=== PATIENT | male | born 1965 | race Caucasian/White ===

== ENCOUNTER → 2018-03-27 16:46 | Outpatient (CLI) | payer OTHER, SELFPAY ==
[2018-03-27 18:05] LABS: Amphetamine Urine VISTA NEGATIVE (<1000 ng/mL); Barbiturate Urine VISTA NEGATIVE (< 200 ng/mL); Benzodiazepine Urine VISTA NEGATIVE (< 200 ng/mL); Cocaine Urine VISTA NEGATIVE (< 300 ng/mL); Ecstacy Urine VISTA NEGATIVE (< 500 ng/mL); Methadone Urine VISTA NEGATIVE (< 300 ng/mL); PCP Urine VISTA NEGATIVE (< 25 ng/mL); THC Urine VISTA NEGATIVE (< 50 ng/mL); Vista UDS pH Range 5
== END ==
PROVIDERS: Family Provider Family Medicine; PCP Family Medicine; Visit Provider Anesthesiology Pain Medicine
DX: F11.20 Opioid dependence, uncomplicated (principal)
CPT/HCPCS: 80307

== ENCOUNTER → 2019-11-13 17:22 | Outpatient (CLI) | payer OTHER, SELFPAY ==
[2014-04-06 16:09] VITALS: BMI 29.5
[2019-11-13 18:24] LABS: Amphetamine Urine VISTA NEGATIVE (<1000 ng/mL); Barbiturate Urine VISTA NEGATIVE (< 200 ng/mL); Benzodiazepine Urine VISTA NEGATIVE (< 200 ng/mL); Cocaine Urine VISTA NEGATIVE (< 300 ng/mL); Ecstacy Urine VISTA NEGATIVE (< 500 ng/mL); Methadone Urine VISTA NEGATIVE (< 300 ng/mL); PCP Urine VISTA NEGATIVE (< 25 ng/mL); THC Urine VISTA NEGATIVE (< 50 ng/mL); Vista UDS pH Range 7
== END ==
PROVIDERS: PCP Family Medicine; Referring Provider Anesthesiology Pain Medicine; Visit Provider Anesthesiology Pain Medicine
DX: F11.20 Opioid dependence, uncomplicated (principal)
CPT/HCPCS: 36415; 80307

== ENCOUNTER → 2020-05-29 07:24 | Outpatient (CLI) | payer OTHER, SELFPAY ==
--- NOTE | 2020-05-29 09:30 | NEURO ---
NCS and/or EMG Patient Report Ordering Doctor: Jesse Monahan DATE OF SERVICE: 05/29/20 Indication: Approximately 4-month history of left lower extremity pain. No preceding trauma or other instigating event. There is associated numbness in the calcaneal distribution. No localized or radicular back pain. Findings: Nerve conduction studies were performed in the left lower extremity. The left peroneal motor study recording the extensor digitorum brevis showed a normal amplitude, normal distal latency and normal conduction velocity. No conduction block or focal slowing was present across the fibular neck. The left tibial motor study recording the abductor hallucis brevis showed a borderline amplitude, normal distal latency and normal conduction velocity. Left sural sensory response showed a normal amplitude and borderline conduction velocity. Left superficial peroneal sensory response showed a normal amplitude and conduction velocity. Left lateral plantar mixed response was unobtainable. Left medial plantar mixed response was unobtainable. Needle EMG of the left lower extremity and lumbar paraspinal muscles was performed. No denervation was present in any muscle. All motor unit morphology, activation and recruitment patterns were normal. The intrinsic foot muscles were not examined due to the common presence of incidental active denervation. Impression: There is no electrophysiologic evidence of lumbosacral radiculopathy or peripheral neuropathy in the left lower extremity. The borderline tibial motor amplitude is of unclear significance, however, given the absence of the plantar responses, this could represent a distal tibial neuropathy. If this is supported clinically, a neuromuscular ultrasound of the tarsal tunnel could considered. Jd Fallon D.O.
== END ==
PROVIDERS: PCP Family Medicine; Referring Provider Family Medicine; Visit Provider Podiatrist Foot & Ankle Surgery
DX: G90.09 Other idiopathic peripheral autonomic neuropathy (principal)
CPT/HCPCS: 95886; 95909

== ENCOUNTER → 2020-06-26 17:49 | Outpatient (CLI) | payer OTHER, SELFPAY ==
[2020-06-19 10:32] VITALS: BMI 29.5
--- NOTE | 2020-06-26 17:51 | MRI_ITS ---
STUDY: MRI CERVICAL SPINE WITHOUT CONTRAST REASON FOR EXAM: Male, 55 years old. Neck pain right scapular pain TECHNIQUE: Standardized fat and water weighted pulse sequences were obtained in the sagittal and axial planes. COMPARISON: Plain films June 19 2020, MR cervical spine January 13 2017 FINDINGS: Examination is mildly degraded due to patient''s body habitus and presence of metallic components producing local artifact. Diagnostic information is available. Craniocervical junction is intact and aligned. There is C5-C7 ACDF which cannot be evaluated due to intrinsic limitations of MR in assessing hardware. Refer to CT for full details. Cervical spine is aligned. Marrow and paraspinal soft tissues are normal. BMI is elevated. Thecal sac is patent at all levels. Spinal cord is normal in size, shape and signal. There is mild to moderate C4-C5 bilateral foraminal stenosis. However, foramina are poorly seen and gradient of stenosis is not reliable. Remainder of the levels have patent foramina. Appearance is similar to 2017. MRI/Spine Cervical (Routine) IMPRESSION: 1. Patent thecal sac, normal cord. 2. No neural compression. 3. Stable appearance since 2017. Electronically Signed: Snehal Warren, at 19:32 EDT Tel , Service support ,
== END ==
PROVIDERS: PCP Family Medicine; Referring Provider Orthopaedic Surgery; Visit Provider Orthopaedic Surgery
DX: M54.2 Cervicalgia (principal); G89.29 Other chronic pain
CPT/HCPCS: 72141

== ENCOUNTER 2020-07-23 16:10 | Inpatient (IN) | payer OTHER, SELFPAY ==
[2020-07-06 09:06] VITALS: BMI 29.5
[2020-07-15 08:07] VITALS: BMI 29.5
--- NOTE | 2020-07-15 09:45 | EKG12_ITS ---
Test Reason : PRE OP Blood Pressure : / mmHG Vent. Rate : 071 BPM Atrial Rate : 071 BPM P-R Int : 150 ms QRS Dur : 102 ms QT Int : 376 ms P-R-T Axes : 051 073 050 degrees QTc Int : 408 ms Normal sinus rhythm Normal ECG Confirmed by ROHIT MUNOZ, KETURAH ([id number]), editor producer JUSTIN FIGUEROA ([id number]) on 07/16/2020 8:14:39 AM Referred By: Denys Wade Confirmed By:KETURAH BEE MD
[2020-07-15 09:55] LABS: Absolute Lymphocyte Count 1.41 X10^3/uL (0.83-4.51); Absolute Neutrophil Count 2.7 X10^3/uL (2.0-7.7); Basophil# 0.05 X10^3/uL; Eosinophil# 0.13 X10^3/uL; Eosinophils% 2.7 % (0-5); Hematocrit 41.1 % (40-54); Hemoglobin 13.9 g/dL (13.0-16.5); Lymphocyte # 1.41 X10^3/ul (4.0); Lymphocyte % 29.4 % (19-41); Mean Corp Hgb Conc 33.8 g/dL (32-36); Mean Corpuscular Hgb 31.2 pg (27.0-32.0); Mean Corpuscular Volume 92.2 fL (80-94); Mean Platelet Vol. 10.8 fl (6.2-12.0); Monocyte# 0.45 X10^3/uL; Monocyte% 9.4 % (0-10); NRBC Flagged by Analyzer 0 % (0-5); Neutrophil # 2.74 X10^3/uL (2.7-7.7); Neutrophil % 57.3 % (47-70); Platelet Count 205 K/mm3 (150-450); RBC Distribution Width CV 12.9 % (11.6-14.6); RBC Distribution Width SD 43.7 fl (35.1-43.9); Red Blood Count 4.46 M/mm3 (4.6-6.2); White Blood Count 4.8 K/mm3 (4.4-11.0)
[2020-07-15 10:25] LABS: Anion Gap 4 (5-15); BUN 14 mg/dL (7-18); BUN/Creat Ratio 19.9 RATIO (10-20); Calcium,Total 9.2 mg/dL (8.5-10.1); Chloride 110 mmol/L (98-107); EST Glomerular Filtration Rate 124 mL/min (>60); Est Glom Filt Rate - Afr Amer 150 mL/min (>60); Glucose 115 mg/dL (74-106); Potassium 4.1 mmol/L (3.5-5.1); Sodium Level 140 mmol/L (136-145)
[2020-07-15 10:54] LABS: HIV - WCH Non-Reactive (Nonreactive)
[2020-07-16 05:07] LABS: HEPATITIS B SURFACE AG Negative (Negative); Hepatitis A AB, Total Negative (Negative); Hepatitis A IgM Antibody Negative (Negative); Hepatitis B Core AB IgM Negative (Negative); Hepatitis B Core Ab Total Negative (Negative); Hepatitis C Ab 0.1 s/co ratio (0.0-0.9)
[2020-07-16 10:31] LABS: Hep B Surface Antibodies Non Reactive (.)
[2020-07-16 13:00] LABS: Magnesium 2.1 mg/dL (1.6-2.6)
[2020-07-23] VITALS (14 sets, daily range): BP systolic 122–149; BP diastolic 69–89; PULSE 73–105; RESP 16–18; TEMP 36.4–36.9; O2SAT 94–99; BMI 35.4
--- NOTE | 2020-07-23 | MISC_PTH ---
PATIENT: SYMONE BLANCO LOC: MS3 U#:[id number] AGE/SX: 55/M ROOM: ND317 RE07/23/[address]: Dr. Denys Wade DO : 1965 BED: 1 DIS: 07/24/2020 SPEC #: [id number] RECD: 07/23/20 07:28 STATUS: BILLIE REJazmin #: [id number] ROBERTO: 07/23/20 00:[address]: Denys Wade DEPT: SURGICAL PATHOLOGY RECD BY: Saman Mata ENTERED: 07/24/20 07:58 SP TYPE: MISC NAOMIE DR: MD Dr. Francisco Elizondo DO Tissues: TISSUE SURGICALLY REMOVED Procedures: Surgery Specimen Level IV HEADER OPERATION: Anterior cervical fusion C4-5 PRE-OP DIAGNOSIS: Cervical disc herniation C4-5 TISSUE SUBMITTED: Cervical disc C4-5 MICROSCOPIC DIAGNOSIS Cervical disc, C4-5, discectomy: Degenerative and focal reparative change. AM:rebeka 07/28/20 MICROSCOPIC DESCRIPTION Slides are reviewed. GROSS DESCRIPTION Received in fixative is one container labeled with the patient's name and designated cervical disc C4-5. The specimen consists of multiple irregular fragments of firm indurated tissue that in aggregate measure 2.5 x 1.5 x 0.2 cm. The specimen is totally submitted in one cassette after short decalcification. / SJ:rebeka 07/24/20 TC:5 CPT: 14099, 91862
--- NOTE | 2020-07-23 08:02 | HP_ITS ---
Intake Intake Visit Reasons: cervical spine Accompanied by: Is patient in pain?: Yes Allergies duloxetine HCl [From Cymbalta] Allergy (Verified 07/09/20 15:42) PT UNSURE OF REACTION fentanyl [From Duragesic] Allergy (Verified 07/09/20 15:42) Shortness of breath Medications Omeprazole 20 mg PO DAILY 04/06/14 [History Confirmed 07/15/20] Tramadol HCl 50 mg PO 4X/DAY 04/06/14 [History Confirmed 07/15/20] cycloBENZAPRine HCl [Flexeril] 10 mg PO TID 04/06/14 [History Confirmed 07/15/20] ibuprofen 800 mg-famotidine 26.6 mg tablet 1 tab PO TID 06/19/20 [History Confirmed 07/15/20] metoprolol tartrate 50 mg tablet 50 mg PO BID 06/19/20 [History Confirmed 07/15/20] naproxen 250 mg tablet 250 mg PO BID PRN 06/19/20 [History Confirmed 07/15/20] venlafaxine 75 mg capsule,extended release 24 hr 75 mg PO DAILY 06/19/20 [History Confirmed 07/15/20] Gemfibrozil [Lopid] 1 tab PO DAILY 07/09/20 [History Confirmed 07/15/20] Multivit-Min/Folic/Vit K/Lycop [Men's 50 Plus Daily Formula Tb] 1 ea PO DAILY 07/09/20 [History Confirmed 07/15/20] PFSH Medical History (Updated 06/19/20 @ 10:44 by Jackie Mejia) H/o neck disk (Acute) HTN (hypertension) (Chronic) Surgical History (Updated 06/19/20 @ 10:44 by Jackie Mejia) H/O colonoscopy (Acute) Social History (Updated 07/15/20 @ 08:[address] Denys Wade DO) household members: spouse, children, other details: granddaughter and son-in-law Smoking Status: Never smoker alcohol intake: current alcohol intake frequency: other what type of physical activity do you participate in: none HPI cervical spine: Surgical H&P: Yes Details: Parts of this documentation were recorded by a scribe, this documentation accurately reflects the service provided and the decisions made by me, Dr. Denys Wade DO 07/15/20 0800. RENÉ BLANCO is a 55 year old M here today for cervical spine F/U to sign surgery consent for anterior cervical fusion at C4-5 above the old fusion site. Patient states that over the weekend he had radiating pain into his BL hands. Denies numbness, tingling or other associated symptoms.He also has pain over his neck constantly. René is here for his preoperative evaluation he is in the company of his . He had the temporary radiating pain into his hands this weekend why I do not really know however it went away almost immediately. Otherwise nothing is changed. He continues have neck pain and posterior cervical cephalgia. I discussed the surgery at length with him and his how it would be done etc. I answered all their questions. Examination is unchanged he still has a lot of pain with extension more than flexion of the cervical spine. And a positive Spurling's locally to either side. He has no long tract signs. He has good motor strength of all the major muscle groups of both upper extremities. I went over his MRI scan and his plain x-rays again today to refamiliarize myself with his condition. I will see him again at surgery in 1 week. ROS [facility] Reports system reviewed and no additional complaints, except as docu, Reports joint pain, Denies numbness, Reports stiffness, Denies tingling Neuro No numbness, No tingling Coding Level of Care Code Off vis,new,level 2 Time Spent (min) 20 No change in H&P
[2020-07-23 10:30] LABS: Bedside Glucose 109 mg/dL (70-110)
[2020-07-23] MEDS: Acetaminophen 500 MG Tablet 1000 MG PO (10:50)
[2020-07-23] MEDS: Lactated Ringers 1,000 ML 100 ML IV ×2 (10:57→17:41)
[2020-07-23] MEDS: Heparin 10,000 UNITS/10 ML Vial 10000 UNITS (12:43)
--- NOTE | 2020-07-23 13:24 | RAD_ITS ---
STUDY: X-RAY - CERVICAL SPINE REASON FOR EXAM: Male, 55 years old. anterior cervical fusion C4-C5, cross table images in OR TECHNIQUE: 3 lateral view(s) of the cervical spine were obtained. COMPARISON: Single lateral view of 07/06/2020 FINDINGS: The atlantoaxial articulation appears normal on these lateral views. Odontoid process appears intact. Normal cervical lordosis. There is anterior fusion with disc spacer at the C4-5 level. There is an anterior cervical fusion plate from C5 to C7. C6 and C7 are poorly visualized on the submitted images. The soft tissue structures are unremarkable. RAD/Spine 1 View Any Level IMPRESSION: Anterior fusion with disc spacer at the C4-5 level, new in the interval. There is again demonstrated an anterior fusion plate from C5 to C7 as noted previously. C6 and C7 are poorly visualized on the submitted study. Electronically Signed: Ortiz Davison MD at 17:48 EDT , Service support ,
[2020-07-23] MEDS: Thrombin 5,000 IU Kit (PSA) 5,000 IU Vial 5000 IU (13:57)
--- NOTE | 2020-07-23 16:20 | OP.PCM_ITS ---
Report of Operation Date of Procedure: 07/23/20 Description of Surgical Findings:: Preoperative diagnosis is degenerative disc disease C4-5 above old fusion. Postoperative diagnosis is the same. The procedure anterior cervical fusion C4-5 with internal fixation. Surgeon was Dr. Wade. fiscal assistant was Venkata Lamb. Anesthesia was performed general endotracheal anesthesia administered by Panda Villatoro last name Arin SOLUTION DESIGNER The estimated blood loss was 50 cc. Drains 1/4 inch [place] drain was left in place. Complications none. Patient was taken to the OR where he was placed in the supine position on the operating table he was then placed under general endotracheal anesthesia a Azul catheter was inserted and a bolster was placed under his shoulders Curlex was put around his wrists around the foot of the bed and to the other wrist. Preoperative x-ray was taken with a needle marker in place to assure that we would start the incision to correct level. This was marked with a needle fidelina at his laceration in the midline using the end of an 18-gauge needle. The neck was prepped and draped in standard fashion I then made the incision at the predetermined point coverage of the edge of the right sternocleidomastoid muscle. Subcutaneous tissues were incised the length of the skin incision. Subcu's were undermined and the platysma was split longitudinally in line with its fibers. Exploited the cervical planes I note that this was an extremely difficult exposure because of patient's very large size and large depth in the old surgery which left him with much scar. Eventually we were able to identify the top of the old titanium plate. Knowing that the 4 5 space was the one immediately above it. The retraction was difficult self-retaining retractors were put in place after elevating the platysma the coli muscles on either side. This in place I remove the anterior annulus with a 15 blade this was just about the top of the plate so we did have to take an x-ray to know that we were at that level. Used a bur to increase the size of the anterior space. I then was able to elevated with an elevator and then I started removing disc from the disc space with pituitary rongeurs and curettes. All the cartilage was removed off both endplates. Took her measurements for the cage we decided to use a 6 mm cage we used a broach to broach the the disc space several times but not both endplates. Millimeter cage and filled with processed allograft bone. Early in the procedure we open the right crest with just a tiny incision using a Jamshidi needle between the tables of the pelvis and 60 cc of bone marrow aspirate were obtained these were then given to the advanced manufacturing technician in the room who spun it down a nd it from the plasma and blood cells and gave it to me in a concentrated fashion of 8-10 times. The cages allograft bone was then soaked in the patient's own stem cells. Esthesia pulling on the had not been tamped into place and countersunk just slightly worse of 2 screws were freehanded and this was the internal fixation portion. 1 went up into see for and the other 1 went down into C5. Her about operative x-ray was taken demonstrate excellent position of the cage and the 2 screws. The amniotic membrane was then placed over this and the top of the old plate that had been exposed to prevent adhesions to the esophagus. 1/4 inch Riya drain was inserted we then closed the platysma and running fashion with 5-0 Vicryl followed by closure of subcutaneous tissues with 5-0 Vicryl in interrupted fashion and the skin was approximated using a running nylon stitch. The pin was placed through the pain to prevent a suction into the wound. This is the end of this operative summary
[2020-07-23] MEDS: Morphine 2 MG/ML Syringe IV ×3 (18:36→22:24)
[2020-07-23] MEDS: 0.9% NaCl Peripheral Flush Adult/Peds IV ×3 (18:36→22:24)
--- NOTE | 2020-07-23 18:56 | PCM.CONS.GEN ---
Problem List (1) Chronic neck pain Status: Chronic (2) Benign essential hypertension Status: Chronic (3) Hyperlipidemia Status: Chronic Qualifiers: Hyperlipidemia type: unspecified Qualified Code(s): E78.5 - Hyperlipidemia, unspecified (4) Gastroesophageal reflux disease Status: Chronic Qualifiers: Esophagitis presence: esophagitis presence not specified Qualified Code(s): K21.9 - Gastro-esophageal reflux disease without esophagitis (5) LISA (obstructive sleep apnea) Status: Chronic (6) Obesity Status: Chronic Qualifiers: Obesity type: due to excess calories Obesity classification: adult class 2 (BMI 35 - 39.9) Serious obesity comorbidity presence: unspecified whether serious comorbidity present Body mass index: BMI 35.0-35.9 Qualified Code(s): E66.09 - Other obesity due to excess calories; Z68.35 - Body mass index [BMI] 35.0-35.9, adult Reason for Consult Date of Consultation: 07/23/20 Reason for Consultation: Medical consultation History of Present Illness: 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 Medical consultation requested for medical management. Work-up included post-operative VS T 98.1, heart rate 99, BP 149/78, respiratory rate 16, 98% on a simple mask, most recent labs noted 07/15/2020 CBC with WC 4.8, hemoglobin 13.9, platelet 205 without market shift, BMP with chloride 110, glucose 115 otherwise unremarkable, magnesium 2.1, negative COVID testing, plain film spine obtained in the OR with anterior fusion with the spacer at C4-5 level, new in the interval, a re-demonstrated anterior fusion plate from C5-C7 as well as C6 and C7 poorly visualized. Upon evaluation he notes neck discomfort /10, recently administered morphine. He denies any upper extremity paresthesias or pain currently. Past Medical History Past Medical History (Chronic Problems): Chronic Problems (Last Updated 06/19/20 @ 10:44 by Jackie Mejia) LISA (obstructive sleep apnea) (Chronic) Chronic neck pain (Chronic) Obesity (Chronic) Hyperlipidemia (Chronic) Gastroesophageal reflux disease (Chronic) Depression (Chronic) Benign essential hypertension (Chronic) Medical History: Medical History (Last Updated 06/19/20 @ 10:44 by Jackie Mejia) H/o neck disk C7 C6 C5, 07/06/2004 HTN (hypertension) I10 Allergies duloxetine HCl [From Cymbalta] Allergy (Verified 07/23/20 10:25) PT UNSURE OF REACTION shakes/ excessive sweating fentanyl [From Duragesic] Allergy (Verified 07/23/20 10:25) Shortness of breath Home Medications: Ambulatory Orders Medication Instructions Recorded Omeprazole 20 mg PO DAILY 04/06/14 Tramadol HCl 50 mg PO 4X/DAY 04/06/14 cycloBENZAPRine HCl [Flexeril] 10 mg PO TID 04/06/14 ibuprofen 800 mg-famotidine 26.6 1 tab PO TID 06/19/20 mg tablet metoprolol tartrate 50 mg tablet 50 mg PO BID 06/19/20 naproxen 250 mg tablet 250 mg PO BID PRN 06/19/20 venlafaxine 75 mg capsule,extended 75 mg PO DAILY 06/19/20 release 24 hr Gemfibrozil [Lopid] 1 tab PO DAILY 07/09/20 Multivit-Min/Folic/Vit K/Lycop 1 ea PO DAILY 07/09/20 [Men's 50 Plus Daily Formula Tb] Surgical History: Surgical History (Last Updated 06/19/20 @ 10:44 by Jackie Mejia) H/O colonoscopy Z98.890 Surgical History: - - Prior cervical C5-7 fusion. Psychiatric History: No pertinent psych hx Lives: Spouse/ Significant Other Smoking Status: Never smoker Tobacco Use: Secondhand - Patient's mother and father had heavy tobacco use history. Alcohol: None Drugs: None - *Family History Maternal Family History: Family History (Last Updated 06/19/20 @ 10:47 by Jackie Mejia) Mother COPD (chronic obstructive pulmonary disease) Hypertension Arthritis Father Cancer Heart disease History Items: Hypertension, Pulmonary Disease - Mother with a history of chronic COPD with significant tobacco use history. Paternal Family History: Family History (Last Updated 06/19/20 @ 10:47 by Jackie Mejia) Mother COPD (chronic obstructive pulmonary disease) Hypertension Arthritis Father Cancer Heart disease History Items: Cancer - Father with a history of lung cancer with concurrent tobacco use history., Heart Disease Review of Systems Constitutional: Reports: Malaise, Weakness, Fatigue. Denies: Anorexia, Chills, Fever, Weight Change HEENT: Reports: Head Aches. Denies: Sinus Congestion, Sinus Drainage Cardiovascular: Denies: Chest Pain, Palpitations Respiratory: Denies: Cough, Shortness of breath at rest, Sputum production Gastrointestinal: Denies: Abdominal Pain, Nausea, Vomiting Genitourinary: Denies: Dysuria Musculoskeletal: Reports: Arm Pain, Neck Pain. Denies: Joint Pain, Joint Tenderness Skin: Denies: Rash, Wounds Neurological: Denies: Numbness, Tingling, Focal weakness Psychiatric: Denies: Anxiety, Depression, Homicidal Ideations, Suicidal Ideations Hematologic/ Lymphatic: Denies: Easy Bruising, Easy Bleeding Subjective: Patient laying in the medical surgical bed, recent postop, soft neck collar in place, anterior dressing with no drainage noted, notes pain 6 out of 10 with recent morphine administration. Objective: Physical Examination: General: awake, alert, oriented x 3 and cooperative, laying in the medical surgical bed, no acute distress, notes pain 6 out of 10. Skin: normal color, turgor, no icterus, cyanosis except noted anterior neck dressing in place with no drainage, soft cervical collar in place. HEENT: AT/NC, EOMI, PERRLA, dry MM, deferred assessment of carotid bruits or JVD as soft neck collar in place, dressing across neck with no drainage status post recent anterior cervical fusion. Lungs: CTA bilaterally, moderate effort, mild decrease BL bases, no rales, ronchi or wheezing. Heart: Regular rate and rhythm; no gallop, rub audible. Abdomen: soft, obese, NTTP, ND, normal BS, no HSM. Extremities: no cyanosis, clubbing, mild bilateral hand edema. Neurological: patient awake, alert, oriented x 3; cognitive function intact; pupils equally reactive to light and accomodation; cranial nerves II-XII grossly normal, moving all 4 extremities although limited given recent neck surgery, strength accordingly diminished secondary to parameters with recent neck surgery but preserved otherwise with no focal deficits, sensation intact, no current radiculopathy in upper extremities noted per patient. Psychiatric: affect appears fatigued otherwise normal, no acute evidence of depressive or anxiety feelings. - Physical Exam Vitals/I&O's: Vital Signs Temp Pulse Resp BP Pulse Ox 98.1 F 102 H 16 147/78 H 97 07/23/20 18:19 07/23/20 18:19 07/23/20 18:19 07/23/20 18:19 07/23/20 18:19 Oxygen Flow Rate (L/min) 6 Oxygen Delivery Method Simple Mask Weight: 283 lb 11.759 oz Body Mass Index (BMI) 35.4 Intake and Output for Last 24 Hours 07/21/20 07/22/20 07/23/20 23:59 23:59 23:59 Intake Total 1222.5 / 1222.5 Output Total 450 / 450 Balance 772.5 / 772.5 Laboratory Results 07/23/20 10:24: POC Glucose 109 Current Medications Enteral Nutritional Formula (Ensure Surgery) 237 ml PO TIDCM RAUDEL Last Admin: 07/23/20 18:00 Dose: Not Given Documented by: Gemfibrozil (Lopid) 600 mg PO DAILYCM [facility] Lactated Ringer's () 1,000 mls @ 100 mls/hr IV .Q10H RAUDEL Last Admin: 07/23/20 17:41 Dose: 100 mls/hr Documented by: Cefazolin Sodium () 1 gm in 50 mls @ 100 mls/hr IV Q8H [facility] Insulin Human Lispro (Humalog Kwikpen (Bkc)) 1 - 6 unit SC Q4H PRN PRN; Protocol PRN Reason: BG>/= 180, SEE PROTOCOL Metoprolol Tartrate (Lopressor (Beta Neal)) 50 mg PO BID [facility] Morphine Sulfate () 2 - 4 mg IV Q2H PRN PRN PRN Reason: Pain Score 6-10 Morphine Sulfate () 2 - 4 mg IV Q2H PRN PRN PRN Reason: Pain Score 6-10 Last Admin: 07/23/20 18:36 Dose: 2 mg Documented by: Ondansetron HCl (Zofran) 4 mg IV Q8H PRN PRN PRN Reason: NAUSEA Pantoprazole Sodium (Protonix) 20 mg PO DAILY [facility] Sodium Chloride () 5 - 15 ml IV UD PRN PRN Reason: SALINE FLUSH Last Admin: 07/23/20 18:36 Dose: 10 ml Documented by: Venlafaxine HCl (Effexor Xr) 75 mg PO DAILY [facility] Assessment/Plan 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 1. Severe posterior cervical cephalgia with associated radiculopathy: Failed conservative therapies and treatments, admitted per Dr. Wade for planned 07/23/20 anterior cervical fusion at C4-5, post-operative pain management, bowel regimen, DVT Prophylaxis, PT/OT/CM per Orthopedic surgery discretion. Continued on patient home venlafaxine which he notes is only for pain and not anxiety and depression although depression reported in history previously. Given patient current complaints with recent morphine administration will add also oral oxycodone. If necessary may also consider gabapentin in addition. 2. Hypertension: Continue home regimen including metoprolol. 3. Hyperlipidemia: Continued on patient Lopid. 4. Obesity: Weight loss and lifestyle changes encouraged. 5. GERD: Continue patient home Protonix regimen. 6. LISA: CPAP q HS. 7. DVT Prophylaxis: SCDS, chemoprophylaxis per surgery discretion given recent OR. Office Visits / Consults: [id number] IP Consult L3
[2020-07-23] MEDS: Cefazolin 1 GM/50 ML BAG IV (22:13)
[2020-07-23] MEDS: Metoprolol Tartrate 50 MG Tablet PO (22:19)
--- NOTE | 2020-07-23 23:28 | CPS ---
Pt. brought in home CPAP unit for his sleep apnea. I went into the pt.'s room, and I was getting ready to set-up his home unit. He claimed to me that he doesn't want to wear his CPAP tonight, due to cervical spine infusion (C4-C5); pt. wearing neck brace at this time.
[2020-07-24] VITALS (7 sets, daily range): BP systolic 117–142; BP diastolic 75–79; PULSE 75–98; RESP 16–18; TEMP 36.2–36.6; O2SAT 95–97
[2020-07-24] MEDS: Lactated Ringers 1,000 ML 100 ML IV (01:57)
[2020-07-24] MEDS: Morphine 2 MG/ML Syringe IV (02:01)
[2020-07-24] MEDS: 0.9% NaCl Peripheral Flush Adult/Peds IV (02:03)
[2020-07-24] MEDS: Cefazolin 1 GM/50 ML BAG IV (06:01)
[2020-07-24] MEDS: Pantoprazole Sodium 20 MG Tablet PO (09:04)
[2020-07-24] MEDS: Metoprolol Tartrate 50 MG Tablet PO (09:04)
[2020-07-24] MEDS: Venlafaxine XR 75 MG Capsule PO (09:04)
[2020-07-24] MEDS: Polyethylene Glycol 3350 17 GM PACKET PO (09:04)
[2020-07-24] MEDS: Gemfibrozil 600 MG Tablet PO (09:05)
[2020-07-24] MEDS: BENZOCAINE/MENTHOL 1 LOZENGE 2 LOZENGE MUCOUS MEM (09:09)
[2020-07-24] MEDS: Ensure Surgery 237 ML LIQUID PO (09:16)
[2020-07-24 10:23] LABS: Absolute Lymphocyte Count 1.25 X10^3/uL (0.83-4.51); Absolute Neutrophil Count 10.5 X10^3/uL (2.0-7.7); Basophil# 0.01 X10^3/uL; Basophil% 0.1 % (0-1); Hematocrit 42.7 % (40-54); Hemoglobin 14.2 g/dL (13.0-16.5); Lymphocyte # 1.25 X10^3/ul (4.0); Lymphocyte % 9.8 % (19-41); Mean Corp Hgb Conc 33.3 g/dL (32-36); Mean Corpuscular Hgb 30.5 pg (27.0-32.0); Mean Corpuscular Volume 91.8 fL (80-94); Mean Platelet Vol. 10.3 fl (6.2-12.0); Monocyte# 0.91 X10^3/uL; Monocyte% 7.2 % (0-10); NRBC Flagged by Analyzer 0 % (0-5); Neutrophil # 10.49 X10^3/uL (2.7-7.7); Neutrophil % 82.5 % (47-70); Platelet Count 248 K/mm3 (150-450); RBC Distribution Width CV 12.6 % (11.6-14.6); RBC Distribution Width SD 42.7 fl (35.1-43.9); Red Blood Count 4.65 M/mm3 (4.6-6.2); White Blood Count 12.7 K/mm3 (4.4-11.0)
[2020-07-24 10:39] LABS: Anion Gap 6 (5-15); BUN 13 mg/dL (7-18); BUN/Creat Ratio 18.8 RATIO (10-20); Calcium,Total 8.9 mg/dL (8.5-10.1); Chloride 104 mmol/L (98-107); Creatinine, Serum 0.69 mg/dL (0.70-1.30); EST Glomerular Filtration Rate 126 mL/min (>60); Est Glom Filt Rate - Afr Amer 153 mL/min (>60); Estimated Creatinine Clearance 144.58 ml/min; Glucose 109 mg/dL (74-106); Potassium 4.2 mmol/L (3.5-5.1); Sodium Level 136 mmol/L (136-145)
--- NOTE | 2020-07-24 10:54 | DCINST_ITS ---
- Discharge Diagnoses Current Active Problems: Current Active and Chronic Problems (Last Updated 06/19/20 @ 10:44 by Jackie Mejia) LISA (obstructive sleep apnea) (Chronic) You will use the following diet at home:: Regular Discharge Activity: May Not Drive Return to work on:: 08/14/20 Weight Bearing Status: Full weight bearing Lifting Restrictions: 20 pounds Call your doctor if your incision/area has: Sudden Increased Bleeding Call your doctor if you observe: Fever of 101 or Higher Change Dressing in (Days):: 4 Remove Dressing in (days):: 4 Allergies/Adverse Reactions: Allergies duloxetine HCl [From Cymbalta] Allergy (Verified 07/23/20 10:25) PT UNSURE OF REACTION shakes/ excessive sweating fentanyl [From Duragesic] Allergy (Verified 07/23/20 10:25) Shortness of breath Medications to take at Discharge Omeprazole 20 mg PO DAILY 04/06/14 Tramadol HCl 50 mg PO 4X/DAY 04/06/14 cycloBENZAPRine HCl [Flexeril] 10 mg PO TID 04/06/14 metoprolol tartrate 50 mg tablet 50 mg PO BID 06/19/20 venlafaxine 75 mg capsule,extended release 24 hr 75 mg PO DAILY 06/19/20 Gemfibrozil [Lopid] 1 tab PO DAILY 07/09/20 Multivit-Min/Folic/Vit K/Lycop [Men's 50 Plus Daily Formula Tb] 1 ea PO DAILY 07/09/20 Primary Care Physician: Zeeshan George MD [Primary Care Provider] - Test Results: Test results from this visit will be discussed in further detail at your follow- up appointment, if applicable. Please Follow Up With: Denys Wade DO When: 1 week
--- NOTE | 2020-07-24 16:44 | PCM.PN.HOSP ---
Reason for Visit: Follow-up for cervical fusion C4-5. Chronic cervical pain. Objective: Heart rate and blood pressure are controlled. Patient denies tingling numbness, paresthesia or weakness of upper extremities. Physical exam General: Alert, Oriented x3, Cooperative HEENT: Atraumatic, PERRLA, EOMI, Normocephalic Oral: No Gingival or Mucosal Lesions/ Ulcerations Neck: Patient on cervical collar. Anterior neck dressing dry. No hematoma or soakage. Supple, No JVD, Negative Carotid Bruits Lungs: Air entry diminished in bilateral lung bases. No crepitation/rhonchi Cardiovascular: Regular rate, Regular Rhythm, Normal S1, Normal S2, No murmurs Abdomen: Bowel Sounds Present, Soft, Non Tender, Non-Distended : No renal angle tenderness. No suprapubic tenderness. Extremities: No edema, Capillary Refill Less than 3 Seconds Skin: No rashes, No breakdown Musculoskeletal: No Tenderness to Palpation of Joints or Extremities Neurological: Cranial nerves II-XII grossly intact, Deep Tendon Reflexes 2+/4 and Symmetrical, Neuro grossly intact. Strength 5 x 5 at major joints of upper extremities. Sensation equal and symmetrical on both upper extremities. Psych/Mental Status: Normal Affect, Appropriate. Vitals/I&O's: Vital Signs Temp Pulse Resp BP Pulse Ox 97.2 F L 82 18 142/79 H 95 07/24/20 09:02 07/24/20 09:04 07/24/20 09:02 07/24/20 09:02 07/24/20 09:02 Oxygen Flow Rate (L/min) 2 Oxygen Delivery Method Room Air Weight: 283 lb 11.759 oz Body Mass Index (BMI) 35.4 Intake and Output for Last 24 Hours 07/22/20 07/23/20 07/24/20 23:59 23:59 23:59 Intake Total 1272.5 / 1322.5 1743.34 / 1743.34 Output Total 450 / 1100 1950 / 1950 Balance 822.5 / 222.5 -206.66 / -206.66 Laboratory Results 07/24/20 10:00: WBC 12.7 H, RBC 4.65, Hgb 14.2, Hct 42.7, MCV 91.8, MCH 30.5, MCHC 33.3, RDW Std Deviation 42.7, RDW Coeff of Marita 12.6, Plt Count 248, MPV 10.3, Immature Gran % (Auto) 0.400, Neut % (Auto) 82.5 H, Lymph % (Auto) 9.8 L, [place] % (Auto) 7.2, Eos % (Auto) 0.0, Baso % (Auto) 0.1, Absolute Neuts (auto) 10.5 H, Absolute Lymphs (auto) 1.25, Nucleated RBC % 0 07/24/20 10:00: Sodium 136, Potassium 4.2, Chloride 104, Carbon Dioxide 26.0, Anion Gap 6, BUN 13, Creatinine 0.69 L, Estim Creat Clear Calc 144.58, Est GFR (MDRD) Af Amer 153, Est GFR (MDRD) Non-Af 126, BUN/Creatinine Ratio 18.8, Glucose 109 H, Calcium 8.9 Medical Necessity - Tobacco Use Smoking Status: Never smoker Tobacco Use: Secondhand - Patient's mother and father had heavy tobacco use history. Assessment/Plan The patient is a 55 y/o M with history of chronic cervical radiculopathy was admitted electively for anterior cervical C4-5 fusion. He had bilateral upper extremity and neck pain for a long time. 1. Cervical degenerative disc disease at C4-5 with associated radiculopathy: Patient had anterior cervical fusion at C4-5 through anterior approach. Pain is controlled. Patient does not have new numbness tingling paresthesia or weakness of upper extremity. Patient is being discharged today. 2. Hypertension: Continue home regimen including metoprolol. 3. Hyperlipidemia: Continued on patient gemfibrozil 4. Obesity: Weight loss and lifestyle changes encouraged. 5. GERD: Continue patient home Protonix regimen. 6. LISA: CPAP q HS. 7. DVT Prophylaxis: SCDS Patient is being discharged home. Follow-up with Dr. Wade Inpatient E&M: [id number] Disch Hosp
== END 2020-07-24 11:59 | disposition home or self-care (01) | DRG 473 ==
LOC: SDC 16:43 → MS3 16:43
PROVIDERS: Anesthesiology; Internal Medicine; Admitting Provider Orthopaedic Surgery; PCP Family Medicine; Referring Provider Orthopaedic Surgery; Visit Provider Orthopaedic Surgery
PROC: 0RG10K0 Fusion of Cervical Vertebral Joint with Nonautologous Tissue Substitute, Anterior Approach, Anterior Column, Open Approach (ICD-10-PCS; CPT 22551; principal; 2020-07-23 11:00)
DX: M50.121 Cervical disc disorder at C4-C5 level with radiculopathy (principal); G89.29 Other chronic pain; Z11.59 Encounter for screening for other viral diseases; I10 Essential (primary) hypertension; E78.5 Hyperlipidemia, unspecified; G47.33 Obstructive sleep apnea (adult) (pediatric); K21.9 Gastro-esophageal reflux disease without esophagitis; F32.9 Major depressive disorder, single episode, unspecified; E66.9 Obesity, unspecified; Z68.35 Body mass index [BMI] 35.0-35.9, adult; Z79.899 Other long term (current) drug therapy; Z98.1 Arthrodesis status
CPT/HCPCS: 36415; 72020; 80048; 82962; 83735; 85025; 86703; 86704; 86705; 86706; 86708; 86709; 86803; 87081; 87340; 87635; 88305; 93005; 99251; C9803; J7120; 90686; A4216; G0463; J2405; U0003

== ENCOUNTER → 2021-01-19 16:40 | Outpatient (CLI) | payer OTHER, SELFPAY ==
[2021-01-19 17:48] LABS: Amphetamine Urine VISTA NEGATIVE (<1000 ng/mL); Barbiturate Urine VISTA NEGATIVE (< 200 ng/mL); Benzodiazepine Urine VISTA NEGATIVE (< 200 ng/mL); Cocaine Urine VISTA NEGATIVE (< 300 ng/mL); Ecstacy Urine VISTA NEGATIVE (< 500 ng/mL); Methadone Urine VISTA NEGATIVE (< 300 ng/mL); PCP Urine VISTA NEGATIVE (< 25 ng/mL); THC Urine VISTA NEGATIVE (< 50 ng/mL); Vista UDS pH Range 5
== END ==
PROVIDERS: PCP Family Medicine; Referring Provider Anesthesiology Pain Medicine; Visit Provider Anesthesiology Pain Medicine
DX: F11.20 Opioid dependence, uncomplicated (principal)
CPT/HCPCS: 80307

== ENCOUNTER 2021-05-04 16:14 | Emergency (ER) | payer OTHER, SELFPAY ==
[2021-05-04 16:15] VITALS: BP 156/87; PULSE 79; RESP 16; TEMP 36.8; O2SAT 98; BMI 27.8
--- NOTE | 2021-05-04 16:41 | EKG12_ITS ---
Test Reason : GEN ILLNESS Blood Pressure : / mmHG Vent. Rate : 075 BPM Atrial Rate : 075 BPM P-R Int : 152 ms QRS Dur : 098 ms QT Int : 372 ms P-R-T Axes : 068 088 041 degrees QTc Int : 415 ms Normal sinus rhythm Normal ECG Confirmed by KARINE MUNOZ, FRANCISCO ([id number]), editor index MEL JERRY ([id number]) on 05/07/2021 10:00:52 AM Referred By: FLORES Confirmed By:FRANCISCO MILTON MD
--- NOTE | 2021-05-04 16:42 | EDS_ITS ---
HPI History of Present Illness Chief Complaint: General Illness Informant: patient Narrative Narrative: 56-year-old male presenting with myalgias. Patient states he was fishing on Monday and out in the heat for several hours. He feels that he may not have had enough water to drink. He was seen at urgent care and they advised that he may be dehydrated and he should come to the ED for evaluation. He complains of myalgias, fatigue. He denies dizziness or syncope. Denies chest pain or shortness of breath. Denies numbness or weakness. Recent Illness/Hospitalization: No PFSH PFSH Medical History (Updated 05/04/21 @ 17:[address] Flavia Corbett MD) GERD (gastroesophageal reflux disease) H/o neck disk HTN (hypertension) LISA (obstructive sleep apnea) Home Medications cyclobenzaprine 10 mg PO TID 04/06/14 [History Last Taken Unknown] omeprazole 20 mg PO DAILY 04/06/14 [History Last Taken 07/23/20 07:30 20 MG] tramadol 50 mg PO 4X/DAY 04/06/14 [History Last Taken Unknown] metoprolol tartrate 50 mg tablet 50 mg PO BID 06/19/20 [History Last Taken 07/23/20 07:30 50 MG] venlafaxine 75 mg capsule,extended release 24 hr 75 mg PO DAILY 06/19/20 [History Last Taken Unknown] gemfibrozil 1 tab PO DAILY 07/09/20 [History Last Taken Unknown] ufcwvmwc-cpe-akwun-vit K-lycop 1 ea PO DAILY 07/09/20 [History Last Taken Unknown] zolpidem 10 mg tablet 10 mg PO QHS PRN #30 tab 09/01/20 [Rx Last Taken Unknown] Allergy/AdvReac Type Severity Reaction Status Date / Time duloxetine HCl Allergy PT UNSURE Verified 05/04/21 16:15 [From Cymbalta] OF REACTION fentanyl [From Duragesic] Allergy Shortness Verified 05/04/21 16:15 of breath Family History (Updated 06/19/20 @ 10:47 by Jackie Mejia) Mother COPD (chronic obstructive pulmonary disease) Hypertension Arthritis Father Cancer Heart disease Surgical History H/O colonoscopy Social History (Updated 01/25/21 @ 08:[address] Denys Wade, DO) household members: spouse, children and other details: granddaughter and son-in-law Smoking Status: Never smoker alcohol intake: current alcohol intake frequency: other what type of physical activity do you participate in: none ROS ROS ED Constitutional Constitutional ED: Denies fever(s) Eyes Eyes: Denies change in vision ENT ENT ED: Denies rhinorrhea or sore throat Cardiovascular Cardiovascular: Denies chest pain or palpitations Respiratory/Chest Respiratory/Chest: Denies cough or dyspnea Gastrointestinal Gastrointestinal: Reports nausea; Denies abdominal pain, diarrhea or vomiting Genitourinary Genitourinary ED: Denies dysuria Musculoskeletal Musculoskeletal: Reports myalgias Integumentary Denies rash Neurologic Neurologic: Reports headache(s) Psychiatric Psychiatric: Denies suicidal thoughts EXAM Physical Exam Const Vital Signs: 05/04/21 16:15 05/04/21 17:09 Temperature 98.3 F Temperature Source Temporal Pulse Rate 79 Respiratory Rate 16 Respiratory Effort Normal Non-Labored Respiratory Pattern Normal Blood Pressure 156/87 H Blood Pressure Mean 110 Pulse Ox 98 Oxygen Delivery Method Room Air Positive well nourished and well developed General Appearance ED: well developed HEENT Reports normocephalic and head/scalp atraumatic Eyes PERRL and EOMs intact bilaterally Neck supple Neck Narrative: No meningismus General: Negative for tenderness Chest Wall inspection of chest normal Resp normal respiratory effort and clear to auscultation bilaterally Cardio regular rate and regular rhythm GI non-tender and non-distended Palpation: soft; Negative for guarding or rebound tenderness present no CVA tenderness Extremity normal to inspection Neuro oriented x3 Sensorium / Orientation: alert Psych mental status grossly normal Skin no rashes or lesions noted MDM MDM MDM Narrative Medical decision making narrative: Patient was given IV fluids. Chest x-ray read by myself and radiology shows no acute process. Covid is negative. Patient is resting comfortably on reevaluation. Advised to drink plenty of fluids. Advised to follow-up with primary care physician. Advised return to ED for worsening complaints. Lab Data Attestation: I reviewed the patient's lab results. Labs: Laboratory Results - last 24 hr 05/04/21 05/04/21 16:55 16:55 WBC 7.7 RBC 5.38 Hgb 16.6 H Hct 50.1 MCV 93.1 MCH 30.9 MCHC 33.1 RDW Std Deviation 45.1 H RDW Coeff of Marita 13.2 Plt Count 244 MPV 10.1 Immature Gran % (Auto) 0.300 Neut % (Auto) 66.2 Lymph % (Auto) 23.4 [place] % (Auto) 8.3 Eos % (Auto) 1.0 Baso % (Auto) 0.8 Absolute Neuts (auto) 5.1 Absolute Lymphs (auto) 1.81 Nucleated RBC % 0 Sodium 138 Potassium 4.2 Chloride 105 Carbon Dioxide 29.0 Anion Gap 4 L BUN 16 Creatinine 0.87 Estim Creat Clear Calc 110.23 Est GFR (MDRD) Af Amer 116 Est GFR (MDRD) Non-Af 96 BUN/Creatinine Ratio 18.3 Glucose 83 Calcium 9.2 Troponin I High Sens 3.1 Radiography Chest X-Ray - ED: 1 View, Read by ED Physician and Read by Radiologist Diagnostic Testing: Radiology Impression Chest X-Ray 05/04/21 16:58 IMPRESSION: No radiographic evidence of acute cardiopulmonary disease. at 1737 Reported and signed by: Matthew Sherman MD Electronically Signed: Matthew Sherman MD at 17:36 EDT Tel , Service support , EKG Initial EKG: Attestation: I personally reviewed and interpreted this EKG as follows: Interpretation: Sinus Rhythm and No Acute Injury Pattern Discharge Plan Triage Chief Complaint: General Illness ED Provider: Flavia Corbett Dx/Rx/DC Orders Clinical Impression: Dehydration, mild Instructions: ED Dehydration (Adult) Prescriptions: No Action venlafaxine 75 mg capsule,extended release 24hr 75 mg PO DAILY RF: 0 metoprolol tartrate 50 mg tablet 50 mg PO BID RF: 0 cyclobenzaprine 10 MG tablet 10 mg PO TID RF: 0 tramadol 50 MG tablet 50 mg PO 4X/DAY RF: 0 omeprazole 20 MG capsule,delayed release(DR/EC) 20 mg PO DAILY RF: 0 gemfibrozil 600 MG tablet 1 tab PO DAILY RF: 0 kqbcfnkg-nbd-ntrmz-vit K-lycop 1 EACH tablet 1 ea PO DAILY RF: 0 zolpidem 10 mg tablet 10 mg PO QHS PRN (Reason: insomnia) Qty: 30 RF: 0 Primary Care Provider: Zeeshan George Referrals: Zeeshan George MD [Primary Care Provider] - Disposition Disposition: Home, Self Care
[2021-05-04] MEDS: 0.9% Normal Saline 1,000 ML 1000 ML IV (16:57)
--- NOTE | 2021-05-04 16:58 | RAD_ITS ---
HISTORY: sob EXAMINATION/TECHNIQUE: XR Chest 1 View: Portable AP upright chest x-ray COMPARISON: 12/05/11 FINDINGS: LINES/DEVICES: None. LUNGS: No consolidation, edema or effusion. No pneumothorax. MEDIASTINUM AND CARDIOVASCULAR STRUCTURES: Cardiac silhouette not enlarged. Central airways and mediastinal contour are unremarkable. BONES AND SOFT TISSUES: No acute bony abnormalities. Anterior cervical fusion hardware unchanged. RAD/Chest 1 View (Portable) IMPRESSION: No radiographic evidence of acute cardiopulmonary disease. at 1737 Reported and signed by: Matthew Sherman MD Electronically Signed: Matthew Sherman MD at 17:36 EDT Tel , Service support ,
[2021-05-04 17:09] LABS: Absolute Lymphocyte Count 1.81 X10^3/uL (0.83-4.51); Absolute Neutrophil Count 5.1 X10^3/uL (2.0-7.7); Basophil# 0.06 X10^3/uL; Basophil% 0.8 % (0-1); Eosinophil# 0.08 X10^3/uL; Hematocrit 50.1 % (40-54); Hemoglobin 16.6 g/dL (13.0-16.5); Lymphocyte # 1.81 X10^3/ul (0.83-4.51); Lymphocyte % 23.4 % (19-41); Mean Corp Hgb Conc 33.1 g/dL (32-36); Mean Corpuscular Hgb 30.9 pg (27.0-32.0); Mean Corpuscular Volume 93.1 fL (80-94); Mean Platelet Vol. 10.1 fl (6.2-12.0); Monocyte# 0.64 X10^3/uL; Monocyte% 8.3 % (0-10); NRBC Flagged by Analyzer 0 % (0-5); Neutrophil # 5.12 X10^3/uL (2.7-7.7); Neutrophil % 66.2 % (47-70); Platelet Count 244 K/mm3 (150-450); RBC Distribution Width CV 13.2 % (11.6-14.6); RBC Distribution Width SD 45.1 fl (35.1-43.9); Red Blood Count 5.38 M/mm3 (4.6-6.2); White Blood Count 7.7 K/mm3 (4.4-11.0)
[2021-05-04 17:24] LABS: Anion Gap 4 (5-15); BUN 16 mg/dL (7-18); BUN/Creat Ratio 18.3 RATIO (10-20); Calcium,Total 9.2 mg/dL (8.5-10.1); Chloride 105 mmol/L (98-107); Creatinine, Serum 0.87 mg/dL (0.70-1.30); EST Glomerular Filtration Rate 96 mL/min (>60); Est Glom Filt Rate - Afr Amer 116 mL/min (>60); Estimated Creatinine Clearance 110.23 ml/min; Glucose 83 mg/dL (74-106); Potassium 4.2 mmol/L (3.5-5.1); Sodium Level 138 mmol/L (136-145); Troponin-I HS 3.1 pg/mL (3.0-78.5)
== END 2021-05-04 17:57 | disposition home or self-care (01) ==
PROVIDERS: Emergency Provider Emergency Medicine; PCP Family Medicine
DX: E86.0 Dehydration (principal); M79.10 Myalgia, unspecified site; I10 Essential (primary) hypertension; Z20.822 Contact with and (suspected) exposure to COVID-19; G47.33 Obstructive sleep apnea (adult) (pediatric); K21.9 Gastro-esophageal reflux disease without esophagitis; Z79.899 Other long term (current) drug therapy
CPT/HCPCS: 71045; 80048; 84484; 85025; 87426; 93005; 96360; 99282; J7030; A4216

== ENCOUNTER 2021-05-17 17:20 | Emergency (ER) | payer OTHER, SELFPAY ==
[2021-05-17 17:21] VITALS: BP 155/97; PULSE 86; RESP 18; TEMP 36.9; O2SAT 97; BMI 36.8
--- NOTE | 2021-05-17 19:06 | EKG12_ITS ---
Test Reason : DYSRHYTHMIA Blood Pressure : / mmHG Vent. Rate : 077 BPM Atrial Rate : 077 BPM P-R Int : 156 ms QRS Dur : 094 ms QT Int : 378 ms P-R-T Axes : 039 086 038 degrees QTc Int : 427 ms Normal sinus rhythm Normal ECG Confirmed by KARINE MUNOZ, FRANCISCO ([id number]), restaurant expeditor MEL JERRY ([id number]) on 05/20/2021 12:49:09 PM Referred By: ANA Confirmed By:FRANCISCO MILTON MD
--- NOTE | 2021-05-17 19:06 | CT_ITS ---
HISTORY: headache TECHNIQUE: Multiple axial images were obtained of the brain without intravenous contrast. A radiation dose optimization technique was used for this scan. IV Contrast dosage and agent: None. COMPARISON: None FINDINGS: # of images incl. paperwork: 264 PARANASAL SINUSES AND MASTOID AIR CELLS: Clear. INTRACRANIAL HEMORRHAGE: None. BRAIN PARENCHYMA: No CT evidence of stroke. No intracranial masses. There is preservation of the samuels/white matter interface. Posterior fossa structures are unremarkable. CSF SPACES: Appropriate for age. There is no hydrocephalus. MASS EFFECT: None. CALVARIUM: Intact. CT/Brain/Head without Contrast IMPRESSION: No acute intracranial findings. Individualized dose optimization techniques were used for this CT. at 2049 Reported and signed by: Matthew Sherman MD Electronically Signed: Matthew Sherman MD at 20:48 EDT Tel , Service support ,
[2021-05-17 19:29] LABS: Bacteria 0 SEEN /hpf (None Seen); Red Blood Cells-Urine 0 SEEN /hpf (0-5); Squamous Epithelial Cells - UA 0 SEEN /hpf (0-5)
[2021-05-17 19:31] LABS: Absolute Lymphocyte Count 1.66 X10^3/uL (0.83-4.51); Absolute Neutrophil Count 5.8 X10^3/uL (2.0-7.7); Basophil# 0.05 X10^3/uL; Basophil% 0.6 % (0-1); Eosinophil# 0.06 X10^3/uL; Eosinophils% 0.7 % (0-5); Hematocrit 49.4 % (40-54); Hemoglobin 16.4 g/dL (13.0-16.5); Lymphocyte # 1.66 X10^3/ul (0.83-4.51); Mean Corp Hgb Conc 33.2 g/dL (32-36); Mean Corpuscular Hgb 30.3 pg (27.0-32.0); Mean Corpuscular Volume 91.1 fL (80-94); Mean Platelet Vol. 10.7 fl (6.2-12.0); Monocyte# 0.69 X10^3/uL; Monocyte% 8.3 % (0-10); NRBC Flagged by Analyzer 0 % (0-5); Neutrophil # 5.78 X10^3/uL (2.7-7.7); Neutrophil % 69.9 % (47-70); Platelet Count 212 K/mm3 (150-450); RBC Distribution Width CV 12.8 % (11.6-14.6); RBC Distribution Width SD 42.6 fl (35.1-43.9); Red Blood Count 5.42 M/mm3 (4.6-6.2); White Blood Count 8.3 K/mm3 (4.4-11.0)
[2021-05-17 19:31] LABS: Color, Urine Yellow (Yellow); Glucose, Dipstick Normal (Normal); Ketone-Dipstick Negative (Negative); Leukocyte Esterase-Dipstick 100 /ul (Negative); Nitrite-Dipstick Negative (Negative); Occult Blood-Urine 25 /ul (Negative); Protein-Dipstick Negative (Negative); Urine Bilirubin Dipstick Negative (Negative); Urine Clarity Clear (Clear); Urine Urobilinogen Normal (Normal)
[2021-05-17] MEDS: 0.9% Normal Saline 1,000 ML 1000 ML IV (19:31)
[2021-05-17 19:38] LABS: Mucous, Urine 1+ /hpf (<or=2+); White Blood Cells 5-10 SEEN /hpf (0-5)
--- NOTE | 2021-05-17 19:45 | RAD_ITS ---
HISTORY: weakness EXAMINATION/TECHNIQUE: XR Chest 1 View: Portable upright AP chest x-ray COMPARISON: 05/04/21 FINDINGS: LINES/DEVICES: None. LUNGS: No consolidation, edema or effusion. No pneumothorax. MEDIASTINUM AND CARDIOVASCULAR STRUCTURES: Cardiac silhouette not enlarged. Central airways and mediastinal contour are unremarkable. BONES AND SOFT TISSUES: No acute bony abnormalities. RAD/Chest 1 View (Portable) IMPRESSION: No radiographic evidence of acute cardiopulmonary disease. at 2030 Reported and signed by: Matthew Sherman MD Electronically Signed: Matthew Sherman MD at 20:29 EDT Tel , Service support ,
[2021-05-17 19:48] LABS: ALB/GLOB Ratio 0.9 RATIO (0.9-2.4); AST(SGOT) 23 U/L (15-37); Alanine Aminotransfer ALT/SGPT 45 U/L (16-61); Albumin, Serum 3.6 g/dL (3.2-5.0); Alkaline Phosphatase 81 U/L (45-117); Anion Gap 7 (5-15); BUN 12 mg/dL (7-18); BUN/Creat Ratio 15.5 RATIO (10-20); Calcium,Total 9.1 mg/dL (8.5-10.1); Chloride 106 mmol/L (98-107); Creatinine, Serum 0.77 mg/dL (0.70-1.30); EST Glomerular Filtration Rate 111 mL/min (>60); Est Glom Filt Rate - Afr Amer 134 mL/min (>60); Estimated Creatinine Clearance 124.55 ml/min; Globulin 4.2 g/dL (2.2-4.2); Glucose 84 mg/dL (74-106); Potassium 4.1 mmol/L (3.5-5.1); Protein, Total 7.8 g/dL (6.4-8.2); Sodium Level 138 mmol/L (136-145); Troponin-I HS 4.3 pg/mL (3.0-78.5)
--- NOTE | 2021-05-17 21:36 | EX.ED.DYSGE1 ---
HPI History of Present Illness Chief Complaint: Weakness Narrative Narrative: Patient presents with generalized weakness, some shakiness, and lightheadedness. He does admit to decreased p.o. intake. He has no urinary symptoms, he has no abdominal pain. He has no chest pain or shortness of breath. No cough or congestion. [facility] Medical History (Updated 05/17/21 @ 21:[address] James Moura MD) GERD (gastroesophageal reflux disease) H/o neck disk HTN (hypertension) LISA (obstructive sleep apnea) Home Medications cyclobenzaprine 10 mg PO TID 04/06/14 [History Last Taken Unknown] omeprazole 20 mg PO DAILY 04/06/14 [History Last Taken 07/23/20 07:30 20 MG] tramadol 50 mg PO 4X/DAY 04/06/14 [History Last Taken Unknown] metoprolol tartrate 50 mg tablet 50 mg PO BID 06/19/20 [History Last Taken 07/23/20 07:30 50 MG] venlafaxine 75 mg capsule,extended release 24 hr 75 mg PO DAILY 06/19/20 [History Last Taken Unknown] gemfibrozil 1 tab PO DAILY 07/09/20 [History Last Taken Unknown] csdktxye-pvt-qvtwm-vit K-lycop 1 ea PO DAILY 07/09/20 [History Last Taken Unknown] zolpidem 10 mg tablet 10 mg PO QHS PRN #30 tab 09/01/20 [Rx Last Taken Unknown] cefdinir 300 mg PO BID #14 cap 05/17/21 [Rx Last Taken Unknown] Allergy/AdvReac Type Severity Reaction Status Date / Time duloxetine HCl Allergy PT UNSURE Verified 05/04/21 16:15 [From Cymbalta] OF REACTION fentanyl [From Duragesic] Allergy Shortness Verified 05/04/21 16:15 of breath Family History (Updated 06/19/20 @ 10:47 by Jackie Mejia) Mother COPD (chronic obstructive pulmonary disease) Hypertension Arthritis Father Cancer Heart disease Surgical History H/O colonoscopy Social History (Updated 01/25/21 @ 08:[address] Denys Wade DO) household members: spouse, children and other details: granddaughter and son-in-law Smoking Status: Never smoker alcohol intake: current alcohol intake frequency: other what type of physical activity do you participate in: none ROS ROS ED ROS Narrative Past medical history: Reviewed, includes hyperlipidemia, hypertension, GERD, depression, sleep apnea Medications: Reviewed Social history: Noncontributory Review of systems: All systems negative except as indicated General: No fever. Generalized weakness as in HPI Eyes: No visual changes ENT: No upper airway congestion, normal voice Neck: No neck pain Cardiovascular: No chest pain Respiratory: No shortness of breath or cough Gastrointestinal: No abdominal pain, nausea vomiting or diarrhea Genitourinary: No dysuria Musculoskeletal: Denies myalgias no difficulty with ambulation Skin: No rash Neurological: No memory loss, confusion or any focal weakness, some shaky feeling. Psych: No recent behavioral changes Hematologic: No easy bleeding or easy bruising EXAM Physical Exam Narrative Exam Narrative: Physical exam General: Patient appears somewhat anxious, otherwise he appears relatively comfortable Head: Normocephalic, Atraumatic Eyes: Conjunctiva not pale ENT: Slightly dry mucous membranes Neck: Supple, Nontender, No lymphadenopathy Cardiovascular: Regular rate, Regular rhythm Respiratory: No distress, CTA bilaterally Abdomen: Soft, Nontender, Nondistended Back: Nontender, Normal Inspection. Negative for: CVA tenderness Extremities: Nontender, No edema Skin: Normal color, No rash Neurological: Alert, Normal Strength, Normal Sensation Psychological: Normal affect Const Vital Signs: 05/17/21 17:21 05/17/21 18:53 Temperature 98.5 F Temperature Source Temporal Pulse Rate 86 Respiratory Rate 18 Respiratory Effort Normal Respiratory Pattern Normal Blood Pressure 155/97 H Blood Pressure Mean 116 Pulse Ox 97 Oxygen Delivery Method Room Air MDM MDM MDM Narrative Medical decision making narrative: Patient improved after IV fluids. He is found to have a UTI otherwise normal work-up. He has no testicular pain he has no flank pain he has no pain with BM movement. I will treat for the UTI and I will discharge in stable condition Lab Data Labs: Laboratory Results - last 24 hr 05/17/21 05/17/21 05/17/21 18:50 18:50 19:26 WBC 8.3 RBC 5.42 Hgb 16.4 Hct 49.4 MCV 91.1 MCH 30.3 MCHC 33.2 RDW Std Deviation 42.6 RDW Coeff of Marita 12.8 Plt Count 212 MPV 10.7 Immature Gran % (Auto) 0.500 Neut % (Auto) 69.9 Lymph % (Auto) 20.0 [place] % (Auto) 8.3 Eos % (Auto) 0.7 Baso % (Auto) 0.6 Absolute Neuts (auto) 5.8 Absolute Lymphs (auto) 1.66 Nucleated RBC % 0 Sodium 138 Potassium 4.1 Chloride 106 Carbon Dioxide 25.0 Anion Gap 7 BUN 12 Creatinine 0.77 Estim Creat Clear Calc 124.55 Est GFR (MDRD) Af Amer 134 Est GFR (MDRD) Non-Af 111 BUN/Creatinine Ratio 15.5 Glucose 84 Calcium 9.1 Total Bilirubin 0.40 AST 23 ALT 45 Alkaline Phosphatase 81 Troponin I High Sens 4.3 Total Protein 7.8 Albumin 3.6 Globulin 4.2 Albumin/Globulin Ratio 0.9 Urine Color Yellow Urine Clarity Clear Urine pH 6.0 Ur Specific [place] 1.020 Urine Protein Negative Urine Glucose (UA) Normal Urine Ketones Negative Urine Occult Blood 25 H Urine Nitrite Negative Urine Bilirubin Negative Urine Urobilinogen Normal Ur Leukocyte Esterase 100 H Urine RBC 0 SEEN Urine WBC 5-10 SEEN Ur Squamous Epith Cells 0 SEEN Urine Bacteria 0 SEEN Urine Mucus 1+ Radiography Diagnostic Testing: Radiology Impression Brain CT 05/17/21 19:06 IMPRESSION: No acute intracranial findings. Individualized dose optimization techniques were used for this CT. at 2049 Reported and signed by: Matthew Sherman MD Electronically Signed: Matthew Sherman MD at 20:48 EDT Tel , Service support , Chest X-Ray 05/17/21 19:45 IMPRESSION: No radiographic evidence of acute cardiopulmonary disease. at 2030 Reported and signed by: Matthew Sherman MD Electronically Signed: Matthew Sherman MD at 20:29 EDT Tel , Service support , Discharge Plan Triage Chief Complaint: Weakness ED Provider: James Moura Dx/Rx/DC Orders Clinical Impression: Acute UTI Instructions: Understanding Urinary Tract ... Prescriptions: New cefdinir 300 mg capsule 300 mg PO BID Qty: 14 RF: 0 No Action venlafaxine 75 mg capsule,extended release 24hr 75 mg PO DAILY RF: 0 metoprolol tartrate 50 mg tablet 50 mg PO BID RF: 0 cyclobenzaprine 10 MG tablet 10 mg PO TID RF: 0 tramadol 50 MG tablet 50 mg PO 4X/DAY RF: 0 omeprazole 20 MG capsule,delayed release(DR/EC) 20 mg PO DAILY RF: 0 gemfibrozil 600 MG tablet 1 tab PO DAILY RF: 0 ukkspgvj-ata-ybkzv-vit K-lycop 1 EACH tablet 1 ea PO DAILY RF: 0 zolpidem 10 mg tablet 10 mg PO QHS PRN (Reason: insomnia) Qty: 30 RF: 0 Primary Care Provider: Zeeshan George Referrals: Zeeshan George MD [Primary Care Provider] - 2 Days Disposition Disposition: Home, Self Care
[2021-05-17] MEDS: Ceftriaxone 1 GM/50 ML BAG IV (22:01)
[2021-05-17 22:11] VITALS: BP 144/93; PULSE 73; RESP 18; O2SAT 96
[2021-05-17 22:45] VITALS: BP 145/88; PULSE 75; RESP 16; O2SAT 97
== END 2021-05-17 22:46 | disposition home or self-care (01) ==
PROVIDERS: Emergency Provider Emergency Medicine; PCP Family Medicine
DX: N39.0 Urinary tract infection, site not specified (principal); R53.1 Weakness; R42 Dizziness and giddiness; I10 Essential (primary) hypertension; E78.5 Hyperlipidemia, unspecified; K21.9 Gastro-esophageal reflux disease without esophagitis; G47.33 Obstructive sleep apnea (adult) (pediatric); G47.30 Sleep apnea, unspecified; F32.9 Major depressive disorder, single episode, unspecified; Z79.899 Other long term (current) drug therapy
CPT/HCPCS: 70450; 71045; 80053; 81001; 84484; 85025; 93005; 96361; 96365; 99284; J7030; A4216

== ENCOUNTER → 2021-08-19 16:54 | Outpatient (CLI) | payer OTHER, SELFPAY ==
[2021-08-19 18:31] LABS: Amphetamine Urine VISTA NEGATIVE (<1000 ng/mL); Barbiturate Urine VISTA NEGATIVE (< 200 ng/mL); Benzodiazepine Urine VISTA NEGATIVE (< 200 ng/mL); Cocaine Urine VISTA NEGATIVE (< 300 ng/mL); Ecstacy Urine VISTA NEGATIVE (< 500 ng/mL); Methadone Urine VISTA NEGATIVE (< 300 ng/mL); PCP Urine VISTA NEGATIVE (< 25 ng/mL); THC Urine VISTA NEGATIVE (< 50 ng/mL); Vista UDS pH Range 6
== END ==
PROVIDERS: PCP Family Medicine; Referring Provider Anesthesiology Pain Medicine; Visit Provider Anesthesiology Pain Medicine
DX: F11.20 Opioid dependence, uncomplicated (principal)
CPT/HCPCS: 80307

== ENCOUNTER → 2022-12-27 | Outpatient (CLI) | payer OTHER, SELFPAY ==
--- NOTE | 2022-12-27 06:54 | CT_ITS ---
STUDY: CT MAXILLOFACIAL SINUSES REASON FOR EXAM: Male, 57 years old. RECURRENT SINUSITIS RADIATION DOSAGE (If Supplied By Facility): CTDIvol = ( 28.14 ) mGy, DLP = ( 2133.04 ) mGycm TECHNIQUE: The patient was scanned in a multi detector CT scanner. High resolution axial imaging was performed without the administration of intravenous contrast material. Sagittal and coronal images were reconstructed. Individualized dose optimization techniques were used for this CT. COMPARISON: None. FINDINGS: FRONTAL SINUSES: Normal aeration, without mucosal inflammatory disease. ETHMOIDAL SINUSES: Normal aeration, without mucosal inflammatory disease. MAXILLARY SINUSES: Normal aeration, without mucosal inflammatory disease. SPHENOIDAL SINUSES: Normal aeration, without mucosal inflammatory disease. There is patency of the bilateral maxillary infundibuli with normal uncinate processes, ethmoid bullae, and hiatus semilunaris. Normal bilateral middle turbinates. Normal bilateral inferior turbinates. Normal midline nasal septum. There is patency of the bilateral nasal airways. The visualized osseous structures are normal. The visualized bilateral orbital contents are normal. CT/Sinus/Facial Bone IMPRESSION: Normal CT examination of the maxillofacial sinuses. Electronically Signed: Solomon Moulton MD at 8:03 EDT ,
== END | disposition home or self-care (01) ==
PROVIDERS: PCP Family Medicine; Referring Provider Family Medicine; Visit Provider Family Medicine
DX: J01.91 Acute recurrent sinusitis, unspecified (principal)
CPT/HCPCS: 70486

== ENCOUNTER → 2023-07-27 | Outpatient (CLI) | payer OTHER, SELFPAY ==
[2023-07-27 18:15] LABS: Amphetamine Urine VISTA NEGATIVE (<1000 ng/mL); Barbiturate Urine VISTA NEGATIVE (< 200 ng/mL); Benzodiazepine Urine VISTA NEGATIVE (< 200 ng/mL); Cocaine Urine VISTA NEGATIVE (< 300 ng/mL); Ecstacy Urine VISTA NEGATIVE (< 500 ng/mL); Methadone Urine VISTA NEGATIVE (< 300 ng/mL); PCP Urine VISTA NEGATIVE (< 25 ng/mL); THC Urine VISTA NEGATIVE (< 50 ng/mL); Vista UDS pH Range 5
== END | disposition home or self-care (01) ==
PROVIDERS: PCP Family Medicine; Visit Provider Anesthesiology Pain Medicine
DX: F11.20 Opioid dependence, uncomplicated (principal)
CPT/HCPCS: 80307

== ENCOUNTER → 2023-09-12 | Outpatient (CLI) | payer OTHER, SELFPAY ==
--- NOTE | 2023-09-12 11:48 | RAD_ITS ---
STUDY: X-RAY - RIGHT HAND REASON FOR EXAM: Male, 58 years old. Third PIP joint pain. TECHNIQUE: 3 view(s) of the hand. COMPARISON: None. FINDINGS: Osteopenia with diffuse mild osteoarthritic changes. Irregularity of the lateral cortex of the proximal phalanx of the second digit, compatible with remote trauma. No acute abnormality or erosive changes Normal soft tissues. RAD/Hand Min 3 Views IMPRESSION: Osteopenia with osteoarthrosis and no acute finding. Electronically Signed: Rashid Mg MD at 14:35 EST ,
== END | disposition home or self-care (01) ==
LOC: MTRAD 11:46
PROVIDERS: PCP Family Medicine; Referring Provider Family Medicine; Visit Provider Family Medicine
DX: M25.541 Pain in joints of right hand (principal)
CPT/HCPCS: 73130

== ENCOUNTER → 2024-05-31 | Outpatient (CLI) | payer OTHER, SELFPAY ==
--- NOTE | 2024-05-31 16:07 | MRI_ITS ---
INDICATION: RADICULOPATHY, NECK PAIN INTO BILATERAL SHOULDERS EXAMINATION: MRI - MR Spine Cervical W/O Contrast TECHNIQUE: Multiplanar and multisequence MR images of the cervical spine were performed without contrast. IV Contrast Dosage and Agent: None. COMPARISON: Cervical spine radiograph January 25, 2021. FINDINGS: VERTEBRAE: Prior anterior cervical discectomy and fusion C4- C5-C6-C7. Normal cervical spine alignment. Normal bone marrow signal with susceptibility artifact mildly degrading exam. No fracture or acute compression deformity. No gross intraosseous edema. No aggressive osseous lesion. CERVICAL SPINAL CORD: Unremarkable in signal and morphology. C2/C3: Slight posterior disc osteophyte complex with minimal spinal canal narrowing and no significant neural foraminal stenosis . C3/C4: Slight posterior disc osteophyte complex with minimal spinal canal narrowing and mild right neural foraminal stenosis . C4/C5: Mild Broad-based posterior osteophyte formation with minimal spinal canal narrowing and mild right neural foraminal narrowing. . C5/C6: Normal disc height and morphology. Normal spinal canal and neuroforamina. C6/C7: Normal disc height and morphology. Normal spinal canal and neuroforamina. C7/T1: Normal disc height and morphology. Normal spinal canal and neuroforamina. NECK SOFT TISSUES: No prevertebral soft tissue swelling. There is no cervical adenopathy. MRI/Spine Cervical (Routine) IMPRESSION: Postsurgical changes C4-C5 to C6-C7 with mild residual spondylosis in the upper cervical spine. Minimal spinal canal and mild neural foraminal stenosis as above. Electronically Signed: John Leo MD at 8:19 EDT ,
== END | disposition home or self-care (01) ==
PROVIDERS: PCP Family Medicine; Referring Provider Anesthesiology Pain Medicine; Visit Provider Anesthesiology Pain Medicine
DX: M54.12 Radiculopathy, cervical region (principal)
CPT/HCPCS: 72141

== ENCOUNTER → 2024-08-22 | Outpatient (CLI) | payer OTHER, SELFPAY ==
[2024-08-22 18:26] LABS: Amphetamine Urine VISTA NEGATIVE (<1000 ng/mL); Barbiturate Urine VISTA NEGATIVE (< 200 ng/mL); Benzodiazepine Urine VISTA NEGATIVE (< 200 ng/mL); Cocaine Urine VISTA NEGATIVE (< 300 ng/mL); Ecstacy Urine VISTA NEGATIVE (< 500 ng/mL); Methadone Urine VISTA NEGATIVE (< 300 ng/mL); PCP Urine VISTA NEGATIVE (< 25 ng/mL); THC Urine VISTA NEGATIVE (< 50 ng/mL); Vista UDS pH Range 5
== END | disposition home or self-care (01) ==
LOC: LAB 17:28
PROVIDERS: PCP Family Medicine; Referring Provider Anesthesiology Pain Medicine; Visit Provider Anesthesiology Pain Medicine
DX: F11.20 Opioid dependence, uncomplicated (principal)
CPT/HCPCS: 80307

== ENCOUNTER → 2024-09-27 | Outpatient (CLI) | payer OTHER, SELFPAY ==
[2024-09-27 10:05] LABS: Absolute Lymphocyte Count 1.13 X10^3/uL (0.83-4.51); Absolute Neutrophil Count 2.9 X10^3/uL (2.0-7.7); Basophil# 0.05 X10^3/uL; Basophil% 1.1 % (0-1); Eosinophil# 0.09 X10^3/uL; Hematocrit 45.7 % (40-54); Hemoglobin 15.4 g/dL (13.0-16.5); Lymphocyte # 1.13 X10^3/ul (0.83-4.51); Lymphocyte % 24.8 % (19-41); Mean Corp Hgb Conc 33.7 g/dL (32-36); Mean Corpuscular Hgb 30.7 pg (27.0-32.0); Mean Corpuscular Volume 91.2 fL (80-94); Mean Platelet Vol. 10.7 fl (6.2-12.0); Monocyte# 0.34 X10^3/uL; Monocyte% 7.5 % (0-10); NRBC Flagged by Analyzer 0 % (0-5); Neutrophil # 2.93 X10^3/uL (2.7-7.7); Neutrophil % 64.2 % (47-70); Platelet Count 171 K/mm3 (150-450); RBC Distribution Width CV 13.2 % (11.6-14.6); Red Blood Count 5.01 M/mm3 (4.6-6.2); White Blood Count 4.6 K/mm3 (4.4-11.0)
[2024-09-27 10:31] LABS: ALB/GLOB Ratio 1.2 RATIO (0.9-2.4); AST(SGOT) 18 U/L (15-37); Alanine Aminotransfer ALT/SGPT 37 U/L (16-61); Alkaline Phosphatase 52 U/L (45-117); Anion Gap 3 (5-15); BUN 16 mg/dL (7-18); BUN/Creat Ratio 20.7 RATIO (10-20); Calcium,Total 9.3 mg/dL (8.5-10.1); Chloride 108 mmol/L (98-107); Cholesterol 201 mg/dL (200); Creatinine, Serum 0.77 mg/dL (0.70-1.30); EST Glomerular Filtration Rate 109 mL/min (>60); Est Glom Filt Rate - Afr Amer 132 mL/min (>60); Globulin 3.3 g/dL (2.2-4.2); Glucose 103 mg/dL (74-106); High Density Lipoprotein 32 mg/dL; Potassium 3.8 mmol/L (3.5-5.1); Protein, Total 7.3 g/dL (6.4-8.2); Sodium Level 140 mmol/L (136-145); Triglycerides 202 mg/dL; Very Low Density Lipoprotein 40 mg/dL (5-40)
[2024-10-02 10:08] LABS: Testosterone, % Free 4.65 % (1.50-4.20); Testosterone, Free 4.88 ng/dL (5.00-21.00); Testosterone, Total 105 ng/dL (264-916)
== END | disposition home or self-care (01) ==
LOC: MTLAB 08:23
PROVIDERS: PCP Family Medicine; Referring Provider Family Medicine; Visit Provider Family Medicine
DX: Z00.00 Encounter for general adult medical examination without abnormal findings (principal); I10 Essential (primary) hypertension; E78.5 Hyperlipidemia, unspecified; K21.9 Gastro-esophageal reflux disease without esophagitis
CPT/HCPCS: 36415; 80053; 80061; 84402; 84403; 85025

== ENCOUNTER → 2025-06-27 | Outpatient (CLI) | payer MEDICAID, SELFPAY ==
[2025-06-27 12:31] LABS: Hematocrit 45.5 % (40-54); Hemoglobin 16.1 g/dL (13.0-16.5); Immature Granulocytes Count 0.070 X10^3/uL (0.0-0.0); Mean Corp Hgb Conc 35.4 g/dL (32-36); Mean Corpuscular Volume 90.1 fL (80-94); Mean Platelet Vol. 11.0 fl (6.2-12.0); NRBC Flagged by Analyzer 0 % (0-5); Platelet Count 255 K/mm3 (150-450); RBC Distribution Width CV 12.9 % (11.6-14.6); RBC Distribution Width SD 42.5 fl (35.1-43.9); Red Blood Count 5.05 M/mm3 (4.6-6.2); White Blood Count 14.2 K/mm3 (4.4-11.0)
[2025-06-27 13:21] LABS: AST(SGOT) 25 U/L (<=37); Alanine Aminotransfer ALT/SGPT 35 U/L (<=46); Albumin, Serum 4.5 g/dL (3.4-4.8); Alkaline Phosphatase 60 U/L (40-129); Anion Gap 14 (5-15); BUN 15 mg/dL (4-19); BUN/Creat Ratio 20.4 RATIO (10-20); Calcium,Total 9.8 mg/dL (7.6-11.0); Carbon Dioxide 21.0 mmol/L (21.0-32.0); Chloride 103 mmol/L (98-108); Globulin 3.4 g/dL (2.2-4.2); Glucose 104 mg/dL (70-99); Potassium 4.1 mmol/L (3.3-5.1)
[2025-07-02 12:09] LABS: Testosterone, % Free 3.01 % (1.50-4.20); Testosterone, Free 3.70 ng/dL (5.00-21.00)
== END | disposition home or self-care (01) ==
LOC: BFHLAB 11:00
PROVIDERS: PCP Family Medicine; Visit Provider Family Medicine
DX: Z00.00 Encounter for general adult medical examination without abnormal findings (principal); I10 Essential (primary) hypertension; E78.5 Hyperlipidemia, unspecified; K21.9 Gastro-esophageal reflux disease without esophagitis
CPT/HCPCS: 36415; 80053; 84402; 84403; 84443; 85025